=== PATIENT | female | born 1980 | race Hispanic/Latino ===

== ENCOUNTER 2018-07-17 16:33 | Emergency (ER) | payer BC, OTHER ==
[2018-07-17 17:14] LABS: BASOPHILS % (AUTO) 2.3 % (0.0-5.0); EOSINOPHILS % (AUTO) 2.8 % (0.0-8.0); HEMATOCRIT 38.7 % (36-48); MEAN CORPUSCULAR HEMOGLOBIN 31.4 pg (27.0-33.0); MEAN CORPUSCULAR HGB CONC 33.7 g/dL (32.0-36.0); MEAN CORPUSCULAR VOLUME 93.1 fL (79-99); MONOCYTES % (AUTO) 6.5 % (3.0-13.0); NEUTROPHILS % (AUTO) 54.4 % (40.0-77.0); PLATELET COUNT (AUTO) 150 K/uL (130-400); RED BLOOD CELL COUNT(AUTO) 4.15 MIL/uL (4.00-5.50); RED CELL DISTRIBUTION WIDTH 12.5 % (11.0-15.5)
[2018-07-17 17:21] LABS: AMPHET/METH SCREEN,URINE NEGATIVE (NEGATIVE); BARBITURATE SCREEN, URINE NEGATIVE (NEGATIVE); BENZODIAZEPINES SCREEN,URINE NEGATIVE (NEGATIVE); CANNABINOID SCREEN,URINE NEGATIVE (NEGATIVE); COCAINE SCREEN,URINE NEGATIVE (NEGATIVE); OPIATE SCREEN,URINE NEGATIVE (NEGATIVE); PHENCYCLIDINE SCREEN,URINE NEGATIVE (NEGATIVE)
[2018-07-17 17:24] LABS: CREATININE 0.6 mg/dL (0.5-1.5); POTASSIUM 4.4 mmol/L (3.5-5.1)
[2018-07-17 17:29] LABS: INR 0.92 (0.85-1.15); PARTIAL THROMBOPLASTIN TIME 24.5 SEC (26.3-35.5); PROTHROMBIN TIME 9.7 SEC (9.6-11.6)
[2018-07-17 17:35] LABS: ALBUMIN 3.3 g/dL (3.5-5.0); BILIRUBIN,TOTAL 0.8 mg/dL (0.2-1.0); TOTAL PROTEIN, SERUM 6.8 g/dL (6.0-8.3)
== END 2018-07-17 19:42 | disposition home or self-care (01) ==
LOC: EDH 16:33
DX: R07.89 Other chest pain (principal); E07.9 Disorder of thyroid, unspecified; Z90.49 Acquired absence of other specified parts of digestive tract
CPT/HCPCS: 36415; 71045; 80053; 80305; 82550; 83880; 84484; 85025; 85610; 85730; 93005

== ENCOUNTER 2020-01-09 09:50 | Emergency (ER) | payer OTHER ==
[2020-01-09] MEDS ORDERED: KETOROLAC TROMETHAMINE 30MG/ML ONE (10:42)
[2020-01-09 11:02] LABS: INR 0.92 (0.85-1.15); PARTIAL THROMBOPLASTIN TIME 27.2 SEC (26.3-35.5)
[2020-01-09 11:08] LABS: APPEARANCE,URINE CLEAR (CLEAR); BILIRUBIN,URINE Negative (NEGATIVE); COLOR,URINE Yellow (YELLOW); GLUCOSE, URINE (UA) Negative (NEGATIVE); KETONES,URINE Negative (NEGATIVE); LEUKOCYTE ESTERASE ,URINE Negative (NEGATIVE); NITRATE,URINE Negative (NEGATIVE); OCCULT BLOOD,URINE Negative (NEGATIVE); PH,URINE 6.5 (5.0-8.0); PROTEIN,URINE Negative (NEGATIVE)
[2020-01-09 11:21] LABS: HCG,QUAL RESULT NEGATIVE (NEGATIVE)
== END 2020-01-09 11:46 | disposition home or self-care (01) ==
LOC: EDH 09:50
DX: S39.012A Strain of muscle, fascia and tendon of lower back, initial encounter (principal); Z20.828 Contact with and (suspected) exposure to other viral communicable diseases; X58.XXXA Exposure to other specified factors, initial encounter; Y93.89 Activity, other specified; Y92.89 Other specified places as the place of occurrence of the external cause; Y99.8 Other external cause status
CPT/HCPCS: 36415; 71045; 81003; 81025; 82550; 83880; 85610; 85730; 87426; 96374; 99284; J1885; U0003

== ENCOUNTER 2022-04-09 20:23 | Emergency (ER) | payer OTHER ==
[~2022-04-09] VITALS: Ht 157.5 cm; Wt 142.0 kg
[2022-04-09] MEDS ORDERED: IBUP-1493 PO (21:47)
== END 2022-04-09 22:48 | disposition home or self-care (01) ==
LOC: EDH 20:23
DX: M75.51 Bursitis of right shoulder (principal); E03.9 Hypothyroidism, unspecified; Z90.49 Acquired absence of other specified parts of digestive tract; W10.8XXA Fall (on) (from) other stairs and steps, initial encounter; Y93.89 Activity, other specified; Y92.89 Other specified places as the place of occurrence of the external cause; Y99.8 Other external cause status
CPT/HCPCS: 73030

== ENCOUNTER 2023-10-05 20:24 | Emergency (ER) | payer OTHER ==
[~2023-10-05] VITALS: Ht 157.5 cm; Wt 147.0 kg
[~2023-10-05 20:24] MED LIST: IBUP-1493 PO
[2023-10-05] MEDS: ORPHENADRINE CITRATE 30 MG/ML ML IVP STA (21:27)
[2023-10-05] MEDS: KETOROLAC 15MG/ML VIAL (15MG/ML) IV STA (21:28)
[2023-10-05] MEDS: TRIAMCINOLONE ACETONIDE 40 MG/ML 1ML VIAL IM STA (21:37)
[2023-10-05] MEDS: MORPHINE 4 MG SYG IVP STA (22:46)
[2023-10-05] MEDS: ONDANSETRON 4MG INJ IVP STA (22:46)
[2023-10-05] MEDS ORDERED: METH-662 PO (23:10)
[2023-10-05] MEDS ORDERED: IBUP-2077 PO (23:10)
[2023-10-05 23:15] VITALS: BP 122/61; PULSE 67; RESP 18; O2SAT 97
== END 2023-10-05 23:16 | disposition home or self-care (01) ==
LOC: EDH 20:24
DX: M54.42 Lumbago with sciatica, left side (principal); M79.662 Pain in left lower leg; E03.9 Hypothyroidism, unspecified; Z79.899 Other long term (current) drug therapy; Z90.49 Acquired absence of other specified parts of digestive tract; Z98.890 Other specified postprocedural states
CPT/HCPCS: 99285; 96374; 96375; 81025; 96372; J2405; J2270; J3301; J1885; J2360